=== PATIENT | female | born 1990 | race Caucasian/White ===

== ENCOUNTER → 2019-10-09 06:30 | Observation (INO) ==
[2019-10-09 02:02] LABS: Basophils % 0.3 %; Eosinophils # 0.1 K/mcL (0.0-0.6); Hematocrit 35.2 % (35.3-44.9); Hemoglobin 11.5 g/dL (11.5-15.4); Immature Granulocytes % 0.6 % (0-4); Lymphocytes # 1.6 K/mcL (0.6-4.6); Lymphocytes % 22.3 %; Mean Corpuscular HGB Conc 32.7 g/dL (31.6-35.5); Mean Corpuscular Hemoglobin 28.3 pg (28.0-33.3); Mean Corpuscular Volume 86.5 fL (83.0-100.0); Mean Platelet Volume 10.9 fL (9.4-12.4); Monocytes # 0.5 K/mcL (0.0-1.3); Monocytes % 7.3 %; Neutrophils # 4.8 K/mcL (1.6-8.9); Platelet Count 160 K/mcL (140-400); Red Blood Count 4.07 M/mcL (3.82-4.97); Red Cell Distribution Width 14.3 % (11.5-14.5); Segmented Neutrophils % 68.5 %
[2019-10-09 02:10] LABS: Protein/Creatinine Ratio,Urine 0.2 mg/mg (0.00-0.20)
[2019-10-09 02:20] LABS: Alanine Aminotransferase 9 Units/L (7-52); Aspartate Amino Transferase 12 Units/L (13-39); BUN/Creatinine Ratio 19 (6-26); Blood Urea Nitrogen 8 mg/dL (6-20); Lactate Dehydrogenase 102 Units/L (140-271); Uric Acid 4.6 mg/dL (2.3-7.6); eGFR For African Americans > 60 (> 60); eGFR For Non-African Americans > 60 (> 60)
[~2019-10-09 06:30] MED LIST: *HR* Labetalol 20 MG/4 ML SYRINGE IVP ONE; Betamethasone Acet/SodPhos 30 MG/5 ML VIAL IM SCH
[2019-10-10 14:59] LABS: Total Volume 24 Hour,Urine 1.91 Liters (0.60-1.60)
== END | disposition home health service (06) ==
LOC: 1NENULAB
PROVIDERS: ADMIT Advanced Practice Midwife; ATTEND Advanced Practice Midwife

== ENCOUNTER 2019-11-03 23:51 | Inpatient (IN) ==
[~2019-11-03 23:51] MED LIST changes: -*HR* Labetalol 20 MG/4 ML SYRINGE IVP ONE; -Betamethasone Acet/SodPhos 30 MG/5 ML VIAL IM SCH; +Ringers Solution, Lactated 1,000 ML IVC SCH
[2019-11-03] MEDS ORDERED: Naloxone 0.4 MG/ML INJ IVP PRN ×2 (23:56→23:58)
[2019-11-03] MEDS ORDERED: Metoclopramide 10 MG/2 ML VIAL IVP PRN (23:56)
[2019-11-03] MEDS ORDERED: miSOPROStoL 25 MCG TABLET VG PRN (23:56)
[2019-11-03] MEDS ORDERED: Famotidine 20 MG/2 ML VIAL IVP PRN (23:56)
[2019-11-03] MEDS ORDERED: Ondansetron 4 MG/2 ML VIAL IVP PRN (23:58)
[2019-11-04 00:38] LABS: Basophils % 0.3 %; Eosinophils # 0.1 K/mcL (0.0-0.6); Eosinophils % 2.1 %; Hematocrit 35.1 % (35.3-44.9); Hemoglobin 12.2 g/dL (11.5-15.4); Immature Granulocytes % 0.3 % (0-4); Lymphocytes # 1.6 K/mcL (0.6-4.6); Lymphocytes % 23.7 %; Mean Corpuscular HGB Conc 34.8 g/dL (31.6-35.5); Mean Corpuscular Hemoglobin 30.1 pg (28.0-33.3); Mean Corpuscular Volume 86.7 fL (83.0-100.0); Mean Platelet Volume 11.7 fL (9.4-12.4); Monocytes # 0.5 K/mcL (0.0-1.3); Monocytes % 6.9 %; Neutrophils # 4.4 K/mcL (1.6-8.9); Platelet Count 177 K/mcL (140-400); Red Blood Count 4.05 M/mcL (3.82-4.97); Red Cell Distribution Width 14.4 % (11.5-14.5); Segmented Neutrophils % 66.7 %; White Blood Count 6.6 K/mcL (4.3-11.1)
[2019-11-04 00:49] LABS: Amphetamine Screen,Urine Negative ng/mL (Cutoff=1000); Barbiturate Screen,Urine Negative ng/mL (Cutoff=200); Benzodiazepines Screen,Urine Negative ng/mL (Cutoff=200); Cannabinoid Screen,Urine Negative ng/mL (Cutoff = 50); Cocaine Screen,Urine Negative ng/mL (Cutoff= 300); Opiate Screen,Urine Negative ng/mL (Cutoff=300); Phencyclidine Screen,Urine Negative ng/mL (Cutoff=25); Protein/Creatinine Ratio,Urine 0.27 mg/mg (0.00-0.20)
[2019-11-04 00:57] LABS: Alanine Aminotransferase 11 Units/L (7-52); Aspartate Amino Transferase 13 Units/L (13-39); BUN/Creatinine Ratio 17 (6-26); Blood Urea Nitrogen 8 mg/dL (6-20); Lactate Dehydrogenase 112 Units/L (140-271); Uric Acid 5.6 mg/dL (2.3-7.6); eGFR For African Americans > 60 (> 60); eGFR For Non-African Americans > 60 (> 60)
[2019-11-04] MEDS ORDERED: EPHEDrine 50 MG/ML VIAL IVP PRN (01:03)
[2019-11-04] MEDS ORDERED: miSOPROStoL 25 MCG TABLET PO SCH (05:00)
[2019-11-04] MEDS: *HR* FentaNYL (PF) 100 MCG/2 ML VIAL IVP PRN ×2 (08:49→11:55)
[2019-11-04] MEDS ORDERED: Oxytocin 20 units/ LR 1000 mL 20 UNIT/1,000 ML BAG IVC SCH (11:45)
[2019-11-04] MEDS ORDERED: Ropivacaine/PF 0.2% 20 ML VIAL EP ONE (12:30)
[2019-11-04] MEDS ORDERED: *HR* FentaNYL (PF) 100 MCG/2 ML VIAL ONE (13:54)
[2019-11-04] MEDS ORDERED: Ropivacaine/PF 0.2% 20 ML VIAL ONE (13:54)
[2019-11-04] MEDS: Epidural Premix (fent/bupiv) 110 ML EP SCH (21:10)
[2019-11-05] MEDS: Epidural Premix (fent/bupiv) 110 ML EP SCH (04:42)
[2019-11-05] MEDS ORDERED: *HR* Labetalol 20 MG/4 ML SYRINGE IVP ONE ×2 (04:48→04:57)
[2019-11-05] MEDS ORDERED: Epidural Premix (fent/bupiv) 110 ML EP SCH (08:49)
[2019-11-05] MEDS ORDERED: Metoclopramide 10 MG/2 ML VIAL IVP PRN (08:49)
[2019-11-05] MEDS ORDERED: Ropivacaine/PF 0.2% 20 ML VIAL EP ONE (08:49)
[2019-11-05] MEDS ORDERED: Benzocaine/Menthol 56 GM AEROSOL SPRAY TP PRN (08:49)
[2019-11-05] MEDS ORDERED: Ringers Solution, Lactated 1,000 ML IVC SCH (08:49)
[2019-11-05] MEDS ORDERED: Acetaminophen 325 MG TABLET PO PRN (08:49)
[2019-11-05] MEDS ORDERED: EPHEDrine 50 MG/ML VIAL IVP PRN (08:49)
[2019-11-05] MEDS ORDERED: *HR* HYDROcodone/Acet 5/325 mg TABLET PO PRN (08:49)
[2019-11-05] MEDS ORDERED: Oxytocin 20 units/ LR 1000 mL 20 UNIT/1,000 ML BAG IVC SCH ×2 (08:49)
[2019-11-05] MEDS ORDERED: Naloxone 0.4 MG/ML INJ IVP PRN ×2 (08:49)
[2019-11-05] MEDS ORDERED: Famotidine 20 MG/2 ML VIAL IVP PRN (08:49)
[2019-11-05] MEDS ORDERED: Lanolin 7 G OINT...G. TP PRN (08:49)
[2019-11-05] MEDS ORDERED: Rho Immune Globulin 1,500 UNIT SYRINGE IM PRN (08:49)
[2019-11-05] MEDS ORDERED: Measles/Mumps/Rubella Vacc 0.5 ML VIAL SQ PRN (08:49)
[2019-11-05] MEDS ORDERED: Ondansetron 4 MG/2 ML VIAL IVP PRN (08:49)
[2019-11-05] MEDS ORDERED: miSOPROStoL 25 MCG TABLET PO SCH (09:00)
[2019-11-05] MEDS: Prenatal Vit/FA 1 EACH TABLET PO SCH (09:32)
[2019-11-05] MEDS: Ibuprofen 600 MG TABLET PO PRN ×2 (09:32→20:50)
[2019-11-06] MEDS: Prenatal Vit/FA 1 EACH TABLET PO SCH (07:55)
[2019-11-06] MEDS: Ibuprofen 600 MG TABLET PO PRN (07:55)
[2019-11-06 09:51] LABS: Basophils % 0.4 %; Eosinophils # 0.3 K/mcL (0.0-0.6); Eosinophils % 3.4 %; Hematocrit 31.5 % (35.3-44.9); Immature Granulocytes % 0.2 % (0-4); Lymphocytes # 1.7 K/mcL (0.6-4.6); Lymphocytes % 21.1 %; Mean Corpuscular HGB Conc 32.7 g/dL (31.6-35.5); Mean Corpuscular Hemoglobin 29.3 pg (28.0-33.3); Mean Corpuscular Volume 89.5 fL (83.0-100.0); Mean Platelet Volume 11.6 fL (9.4-12.4); Monocytes # 0.4 K/mcL (0.0-1.3); Monocytes % 5.3 %; Neutrophils # 5.7 K/mcL (1.6-8.9); Platelet Count 153 K/mcL (140-400); Red Blood Count 3.52 M/mcL (3.82-4.97); Red Cell Distribution Width 14.6 % (11.5-14.5); Segmented Neutrophils % 69.6 %; White Blood Count 8.1 K/mcL (4.3-11.1)
[2019-11-06 09:54] LABS: Hemoglobin 10.3 g/dL (11.5-15.4)
[2019-11-06 10:13] LABS: Alanine Aminotransferase 10 Units/L (7-52); Aspartate Amino Transferase 13 Units/L (13-39); BUN/Creatinine Ratio 18 (6-26); Blood Urea Nitrogen 9 mg/dL (6-20); Lactate Dehydrogenase 109 Units/L (140-271); Uric Acid 6.3 mg/dL (2.3-7.6); eGFR For African Americans > 60 (> 60); eGFR For Non-African Americans > 60 (> 60)
[2019-11-06 12:43] VITALS: BP 131/83
== END 2019-11-06 17:14 | disposition home or self-care (01) | DRG 807 ==
LOC: 1NENULAB 23:51 → 1NENUOBS 11-05 08:48
PROVIDERS: ADMIT Advanced Practice Midwife; ATTEND Advanced Practice Midwife

== ENCOUNTER 2019-11-10 14:36 | Inpatient (IN) ==
[2019-11-10] MEDS ORDERED: NIFEdipine 10 MG CAPSULE PO STA ×2 (14:46→15:37)
[2019-11-10 15:58] LABS: Bilirubin,Urine Negative (Negative); Blood,Urine Small (Negative); Clarity,Urine Clear (Clear); Color,Urine Light-Yellow (Yellow); Glucose,Urine (UA) Normal (Normal); Ketones,Urine Negative (Negative); Leukocyte Esterase,Urine Small (Negative); Mucus,Urine Few per lpf (None-Few); Nitrite,Urine Negative (Negative); PH,Urine 6.5 pH Units (5.0-8.0); Protein,Urine Trace mg/dL (Neg-Trace); RBC,Urine 0-3 per hpf (0-3); Squamous Epithelial Cell,Urine Few per hpf (None-Few); Urobilinogen,Urine Normal (Normal)
[2019-11-10 15:59] LABS: Basophils % 0.5 %; Eosinophils # 0.2 K/mcL (0.0-0.6); Eosinophils % 2.7 %; Hematocrit 32.8 % (35.3-44.9); Hemoglobin 10.3 g/dL (11.5-15.4); Immature Granulocytes % 0.9 % (0-4); Lymphocytes # 1.4 K/mcL (0.6-4.6); Lymphocytes % 24.5 %; Mean Corpuscular HGB Conc 31.4 g/dL (31.6-35.5); Mean Corpuscular Hemoglobin 27.6 pg (28.0-33.3); Mean Corpuscular Volume 87.9 fL (83.0-100.0); Mean Platelet Volume 10.8 fL (9.4-12.4); Monocytes # 0.4 K/mcL (0.0-1.3); Monocytes % 6.6 %; Neutrophils # 3.8 K/mcL (1.6-8.9); Platelet Count 191 K/mcL (140-400); Red Blood Count 3.73 M/mcL (3.82-4.97); Red Cell Distribution Width 13.8 % (11.5-14.5); Segmented Neutrophils % 64.8 %; White Blood Count 5.9 K/mcL (4.3-11.1)
[2019-11-10 16:21] LABS: Alanine Aminotransferase 17 Units/L (7-52); Aspartate Amino Transferase 17 Units/L (13-39); BUN/Creatinine Ratio 26 (6-26); Blood Urea Nitrogen 13 mg/dL (6-20); Lactate Dehydrogenase 128 Units/L (140-271); Uric Acid 7.2 mg/dL (2.3-7.6); eGFR For African Americans > 60 (> 60); eGFR For Non-African Americans > 60 (> 60)
[2019-11-10 19:16] LABS: Protein/Creatinine Ratio,Urine 0.43 mg/mg (0.00-0.20)
[2019-11-10] MEDS ORDERED: Saline Nasal Spray 44 ML BOTTLE NS PRN (21:15)
[2019-11-10] MEDS: NIFEdipine XL (24 HR) 30 MG TAB.ER.24 PO SCH (21:41)
[2019-11-11] MEDS: NIFEdipine XL (24 HR) 30 MG TAB.ER.24 PO SCH (08:17)
[2019-11-11] MEDS ORDERED: Calcium Gluconate 1,000 MG/10 ML VIAL IVP PRN (09:04)
[2019-11-11] MEDS ORDERED: Magnesium Sulf 20 gm/SW 500mL 20 GM/500 ML IV.SOLN IVC SCH (09:15)
[2019-11-11 09:35] LABS: Basophils % 0.5 %; Eosinophils # 0.2 K/mcL (0.0-0.6); Eosinophils % 3.2 %; Hematocrit 37.2 % (35.3-44.9); Hemoglobin 11.8 g/dL (11.5-15.4); Immature Granulocytes % 0.7 % (0-4); Lymphocytes # 1.3 K/mcL (0.6-4.6); Lymphocytes % 23.9 %; Mean Corpuscular HGB Conc 31.7 g/dL (31.6-35.5); Mean Corpuscular Volume 88.2 fL (83.0-100.0); Mean Platelet Volume 10.8 fL (9.4-12.4); Monocytes # 0.4 K/mcL (0.0-1.3); Monocytes % 6.3 %; Neutrophils # 3.6 K/mcL (1.6-8.9); Platelet Count 213 K/mcL (140-400); Red Blood Count 4.22 M/mcL (3.82-4.97); Red Cell Distribution Width 13.9 % (11.5-14.5); Segmented Neutrophils % 65.4 %; White Blood Count 5.6 K/mcL (4.3-11.1)
[2019-11-11 09:53] LABS: Alanine Aminotransferase 19 Units/L (7-52); Aspartate Amino Transferase 18 Units/L (13-39); BUN/Creatinine Ratio 16 (6-26); Blood Urea Nitrogen 9 mg/dL (6-20); Lactate Dehydrogenase 138 Units/L (140-271); Uric Acid 6.6 mg/dL (2.3-7.6); eGFR For African Americans > 60 (> 60); eGFR For Non-African Americans > 60 (> 60)
[2019-11-11] MEDS: Ringers Solution, Lactated 500 ML IVC SCH ×2 (10:50→21:18)
[2019-11-11] MEDS: Ibuprofen 600 MG TABLET PO PRN ×2 (11:22→22:21)
[2019-11-11] MEDS: Magnesium Sulf 20 gm/SW 500mL 20 GM/500 ML IV.SOLN IVC SCH ×2 (11:30→21:19)
[2019-11-12] MEDS: Ibuprofen 600 MG TABLET PO PRN ×2 (05:20→18:05)
[2019-11-12] MEDS: Magnesium Sulf 20 gm/SW 500mL 20 GM/500 ML IV.SOLN IVC SCH (08:06)
[2019-11-12] MEDS: Simethicone 80 MG TAB.CHEW PO PRN ×2 (08:31→18:05)
[2019-11-13] MEDS ORDERED: NIFEdipine 10 MG CAPSULE PO ONE (02:34)
[2019-11-13] MEDS: Ibuprofen 600 MG TABLET PO PRN (03:08)
[2019-11-13 08:27] VITALS: BP 130/80
== END 2019-11-13 11:52 | disposition home or self-care (01) | DRG 776 ==
LOC: 1NENUOBS
PROVIDERS: ADMIT Registered Nurse; ATTEND Registered Nurse

== ENCOUNTER 2021-03-02 12:59 | Observation (INO) ==
[2021-03-02 14:07] LABS: Basophils % 0.3 %; Eosinophils # 0.1 K/mcL (0.0-0.6); Eosinophils % 1.3 %; Hematocrit 33.4 % (35.3-44.9); Hemoglobin 10.6 g/dL (11.5-15.4); Immature Granulocytes % 0.3 % (0-4); Lymphocytes % 16.2 %; Mean Corpuscular HGB Conc 31.7 g/dL (31.6-35.5); Mean Corpuscular Hemoglobin 27.5 pg (28.0-33.3); Mean Corpuscular Volume 86.8 fL (83.0-100.0); Mean Platelet Volume 11.4 fL (9.4-12.4); Monocytes # 0.2 K/mcL (0.0-1.3); Monocytes % 3.9 %; Neutrophils # 4.6 K/mcL (1.6-8.9); Platelet Count 152 K/mcL (140-400); Red Blood Count 3.85 M/mcL (3.82-4.97); Red Cell Distribution Width 14.4 % (11.5-14.5); White Blood Count 5.9 K/mcL (4.3-11.1)
[2021-03-02 14:20] LABS: Protein/Creatinine Ratio,Urine 0.15 mg/mg (0.00-0.20)
[2021-03-02 14:21] LABS: Alanine Aminotransferase 6 Units/L (7-52); Aspartate Amino Transferase 9 Units/L (13-39); BUN/Creatinine Ratio 17 (6-26); Blood Urea Nitrogen 8 mg/dL (6-20); Lactate Dehydrogenase 96 Units/L (140-271); eGFR For African Americans > 60 (> 60); eGFR For Non-African Americans > 60 (> 60)
== END 2021-03-02 15:06 | disposition home or self-care (01) ==
LOC: 1NENULAB
PROVIDERS: ADMIT Obstetrics & Gynecology; ATTEND Obstetrics & Gynecology

== ENCOUNTER 2021-03-23 12:48 | Inpatient (IN) ==
[2021-03-23] MEDS ORDERED: Famotidine 20 MG/2 ML VIAL IVP PRN (13:05)
[2021-03-23] MEDS ORDERED: Lidocaine 1% 20 ML MDV ID PRN (13:05)
[2021-03-23] MEDS ORDERED: Azithromycin 500 MG in 0.9 % Sodium Chloride 250 ML IVPB PRN (13:05)
[2021-03-23] MEDS ORDERED: Naloxone 0.4 MG/ML INJ IVP PRN (13:05)
[2021-03-23] MEDS ORDERED: Metoclopramide 10 MG/2 ML VIAL IVP PRN (13:05)
[2021-03-23] MEDS ORDERED: Ondansetron 4 MG/2 ML VIAL IVP PRN ×2 (13:05→22:09)
[2021-03-23] MEDS ORDERED: *HR* Nalbuphine 10 MG/ML AMPUL IV PRN (13:05)
[2021-03-23] MEDS ORDERED: miSOPROStoL 25 MCG TABLET PO PRN (13:07)
[2021-03-23] MEDS ORDERED: Oxytocin 20 units/ LR 1000 mL 20 UNIT/1,000 ML BAG IVC SCH (13:15)
[2021-03-23] MEDS ORDERED: Ringers Solution, Lactated 1,000 ML IVC SCH (13:15)
[2021-03-23 14:16] LABS: Basophils % 0.2 %; Eosinophils # 0.1 K/mcL (0.0-0.6); Eosinophils % 1.3 %; Hematocrit 33.7 % (35.3-44.9); Hemoglobin 10.9 g/dL (11.5-15.4); Immature Granulocytes % 0.5 % (0-4); Lymphocytes # 1.1 K/mcL (0.6-4.6); Lymphocytes % 18.3 %; Mean Corpuscular HGB Conc 32.3 g/dL (31.6-35.5); Mean Corpuscular Hemoglobin 27.6 pg (28.0-33.3); Mean Corpuscular Volume 85.3 fL (83.0-100.0); Mean Platelet Volume 11.7 fL (9.4-12.4); Monocytes # 0.3 K/mcL (0.0-1.3); Monocytes % 5.7 %; Neutrophils # 4.4 K/mcL (1.6-8.9); Platelet Count 158 K/mcL (140-400); Red Blood Count 3.95 M/mcL (3.82-4.97); Red Cell Distribution Width 14.6 % (11.5-14.5)
[2021-03-23 14:34] LABS: Amphetamine Screen,Urine Negative ng/mL (Cutoff=1000); Barbiturate Screen,Urine Negative ng/mL (Cutoff=200); Benzodiazepines Screen,Urine Negative ng/mL (Cutoff=200); Cannabinoid Screen,Urine Negative ng/mL (Cutoff = 50); Cocaine Screen,Urine Negative ng/mL (Cutoff= 300); Opiate Screen,Urine Negative ng/mL (Cutoff=300); Phencyclidine Screen,Urine Negative ng/mL (Cutoff=25)
[2021-03-23 14:53] LABS: Influenza A PCR Negative (Negative); Influenza B PCR Negative (Negative); Resp. Syncytial Virus PCR Negative (Negative); SARS-CoV-2 by PCR (In House) Negative (Negative)
[2021-03-23] MEDS ORDERED: *HR* FentaNYL (PF) 100 MCG/2 ML VIAL EP ONE (15:15)
[2021-03-23] MEDS ORDERED: Epidural Premix (fent/bupiv) 110 ML EP SCH (15:15)
[2021-03-23] MEDS ORDERED: Ropivacaine/PF 0.2% 20 ML VIAL EP ONE (15:15)
[2021-03-23] MEDS ORDERED: EPHEDrine 50 MG/ML VIAL IVP PRN (15:15)
[2021-03-23] MEDS ORDERED: Acetaminophen 325 MG TABLET PO ONE (17:06)
[2021-03-23] MEDS ORDERED: Ropivacaine/PF 0.2% 20 ML VIAL ONE (19:03)
[2021-03-23] MEDS ORDERED: *HR* FentaNYL (PF) 100 MCG/2 ML VIAL ONE (19:03)
[2021-03-23] MEDS ORDERED: Lidocaine/EPI 1:200k 2% PF 20 ML VIAL ONE (21:12)
[2021-03-23] MEDS ORDERED: Ondansetron 4 MG/2 ML VIAL ONE (21:12)
[2021-03-23] MEDS ORDERED: Ketorolac 30 MG/ML VIAL ONE (21:12)
[2021-03-23] MEDS ORDERED: Acetaminophen IV 1,000 MG/100 ML BAG IVPB ONE (21:12)
[2021-03-23] MEDS ORDERED: *HR* Morphine Sulfate/PF 10 MG/10 ML AMPUL ONE (21:12)
[2021-03-23] MEDS ORDERED: Promethazine 6.25 MG in Water for inj. (sterile) 20 ML IVPB PRN (22:09)
[2021-03-23] MEDS ORDERED: *HR* HYDROmorphone PF 0.5 MG/0.5 ML SYRINGE IVP PRN (22:09)
[2021-03-24] MEDS ORDERED: Acetaminophen 325 MG TABLET PO SCH (01:13)
[2021-03-24] MEDS ORDERED: Oxytocin 20 units/ LR 1000 mL 20 UNIT/1,000 ML BAG IVC SCH ×2 (01:13)
[2021-03-24] MEDS ORDERED: Metoclopramide 10 MG/2 ML VIAL IVP PRN (01:13)
[2021-03-24] MEDS ORDERED: Ondansetron 4 MG/2 ML VIAL IVP PRN (01:13)
[2021-03-24] MEDS ORDERED: Rho Immune Globulin 1,500 UNIT SYRINGE IM ONE (01:13)
[2021-03-24] MEDS ORDERED: Ringers Solution, Lactated 1,000 ML IVC SCH (01:13)
[2021-03-24] MEDS: *HR* OxyCODONE Immed Rel 5 MG TABLET PO PRN ×4 (01:28→19:47)
[2021-03-24] MEDS ORDERED: Ibuprofen 600 MG TABLET PO ONE (02:00)
[2021-03-24 05:36] LABS: Basophils % 0.1 %; Hematocrit 31.2 % (35.3-44.9); Hemoglobin 10.6 g/dL (11.5-15.4); Immature Granulocytes % 0.3 % (0-4); Lymphocytes # 0.7 K/mcL (0.6-4.6); Lymphocytes % 5.2 %; Mean Corpuscular Hemoglobin 28.9 pg (28.0-33.3); Mean Platelet Volume 12.1 fL (9.4-12.4); Monocytes # 0.6 K/mcL (0.0-1.3); Monocytes % 3.9 %; Neutrophils # 12.9 K/mcL (1.6-8.9); Platelet Count 175 K/mcL (140-400); Red Blood Count 3.67 M/mcL (3.82-4.97); Red Cell Distribution Width 14.5 % (11.5-14.5); Segmented Neutrophils % 90.5 %; White Blood Count 14.3 K/mcL (4.3-11.1)
[2021-03-24] MEDS: Acetaminophen 325 MG TABLET PO SCH ×3 (07:22→19:48)
[2021-03-24] MEDS ORDERED: NON-FORMULARY MEDICATION 1 EACH EACH (Prenatal Vits96/Iron Fum/Folic [Prenatal Tablet] 1 E PO SCH (09:00)
[2021-03-24] MEDS: Famotidine 20 MG TABLET PO SCH (09:06)
[2021-03-24] MEDS: NIFEdipine XL (24 HR) 30 MG TAB.ER.24 PO SCH (09:06)
[2021-03-24] MEDS: Prenatal Vit/FA 1 EACH TABLET PO SCH (09:07)
[2021-03-24] MEDS: *HR* Enoxaparin 120 MG/0.8 ML SYRINGE SQ SCH ×2 (13:15→19:47)
[2021-03-25] MEDS: *HR* OxyCODONE Immed Rel 5 MG TABLET PO PRN ×5 (00:31→20:35)
[2021-03-25] MEDS: Acetaminophen 325 MG TABLET PO SCH ×3 (02:50→14:30)
[2021-03-25] MEDS: Simethicone 80 MG TAB.CHEW PO PRN ×3 (02:50→15:50)
[2021-03-25] MEDS ORDERED: Ibuprofen 600 MG TABLET PO PRN (03:10)
[2021-03-25] MEDS: Prenatal Vit/FA 1 EACH TABLET PO SCH (07:35)
[2021-03-25] MEDS: NIFEdipine XL (24 HR) 30 MG TAB.ER.24 PO SCH (07:35)
[2021-03-25] MEDS: Famotidine 20 MG TABLET PO SCH (07:36)
[2021-03-25] MEDS: *HR* Enoxaparin 120 MG/0.8 ML SYRINGE SQ SCH ×2 (07:36→20:34)
[2021-03-25] MEDS ORDERED: Lanolin 7 G OINT...G. TP PRN (14:35)
[2021-03-26] MEDS: *HR* OxyCODONE Immed Rel 5 MG TABLET PO PRN ×2 (01:07→07:26)
[2021-03-26] MEDS: Acetaminophen 325 MG TABLET PO SCH ×2 (01:08→10:10)
[2021-03-26 07:05] VITALS: TEMP 97.5; O2SAT 98
[2021-03-26] MEDS ORDERED: NIFEdipine XL (24 HR) 60 MG TAB.ER.24 PO SCH (10:00)
[2021-03-26 10:01] LABS: Basophils % 0.3 %; Eosinophils # 0.3 K/mcL (0.0-0.6); Eosinophils % 4.8 %; Hematocrit 26.5 % (35.3-44.9); Immature Granulocytes % 0.3 % (0-4); Lymphocytes # 1.2 K/mcL (0.6-4.6); Lymphocytes % 20.9 %; Mean Corpuscular HGB Conc 32.8 g/dL (31.6-35.5); Mean Corpuscular Hemoglobin 28.7 pg (28.0-33.3); Mean Corpuscular Volume 87.5 fL (83.0-100.0); Monocytes # 0.3 K/mcL (0.0-1.3); Monocytes % 5.8 %; Platelet Count 154 K/mcL (140-400); Red Blood Count 3.03 M/mcL (3.82-4.97); Red Cell Distribution Width 15.1 % (11.5-14.5); Segmented Neutrophils % 67.9 %
[2021-03-26 10:05] LABS: Protein/Creatinine Ratio,Urine 0.22 mg/mg (0.00-0.20)
[2021-03-26] MEDS: Prenatal Vit/FA 1 EACH TABLET PO SCH (10:09)
[2021-03-26] MEDS: *HR* Enoxaparin 120 MG/0.8 ML SYRINGE SQ SCH (10:10)
[2021-03-26] MEDS: Famotidine 20 MG TABLET PO SCH (10:10)
[2021-03-26 10:16] LABS: Alanine Aminotransferase 8 Units/L (7-52); Aspartate Amino Transferase 12 Units/L (13-39); BUN/Creatinine Ratio 20 (6-26); Blood Urea Nitrogen 11 mg/dL (6-20); Lactate Dehydrogenase 110 Units/L (140-271); Uric Acid 6.3 mg/dL (2.3-7.6)
[2021-03-26 10:29] VITALS: BP 134/89; PULSE 85
[2021-03-26 10:36] LABS: Hemoglobin 8.7 g/dL (11.5-15.4); White Blood Count 5.9 K/mcL (4.3-11.1)
== END 2021-03-26 13:13 | disposition home or self-care (01) | DRG 784 ==
LOC: 1NENULAB 12:48 → 1NENUOBS 03-24 01:10
PROVIDERS: ADMIT Student in an Organized Health Care Education/Training Program; ATTEND Student in an Organized Health Care Education/Training Program